=== PATIENT | female | born 1935 | race Caucasian/White ===

== ENCOUNTER 2020-07-20 04:17 | Emergency (ER) | payer MEDICARE, OTHER ==
[2020-07-20 04:28] VITALS: BP 206/91; PULSE 62
--- NOTE | 2020-07-20 05:05 | EDM.PDOC ---
<DutchLuis ragsdale Barbra - Last Filed: 07/20/20 06:59> ED HPI GENERAL MEDICAL PROBLEM - General Chief Complaint: Neurological Problem Stated Complaint: dizzy,throwing up and headache Time Seen by Provider: 07/20/20 04:39 Source of Information: Reports: Patient History Limitations: Reports: No Limitations - History of Present Illness INITIAL COMMENTS - FREE TEXT/NARRATIVE: Mrs. High is a very pleasant 84-year-old woman who now presents to the ED with a complaint of dizziness. She states that she got up around 01:00 morning to use the restroom, and shortly afterward developed a sense of disequilibrium, goofiness, and unsteadiness on her feet. She specifically denies feeling lightheaded or vertiginous, although she did also develop nausea without emesis around that time. No associated headache, although she states that she has had sinus pressure for the past 2 to 3 months. No tinnitus, ear pain, or decreased hearing. No dysuria, although she states that she has had to get up to use the restroom in the middle of the night with increasing frequency over the past few months. Patient states that she had similar symptoms once, about 30 years ago. She states that she was seen in an ED, but she does not recall what her diagnosis was. The patient states that she sleeps on her right side, following bilateral hip replacement surgery, and that if she lies on her back, it will induce these sorts of symptoms. She states that earlier tonight she briefly laid on her back in order to stretch her legs, and she believes that that is the cause of her current symptoms. Here in the ED, the patient's initial BP was found to be elevated at 206/91, although a subsequent BP a short while later was down to 199/91, without t reatment. She is otherwise hemodynamically stable, afebrile, saturating 96% on room air. Other than 2 to 3 months of sinus pressure and the increased need to urinate at night, the patient denies having a recent fever, chills, sore throat, ear pain, nasal or sinus congestion, cough, dyspnea, chest pain, palpitations, nausea, vomiting, constipation, diarrhea, abdominal pain, urinary symptoms, recent weight gain or weight loss, recent bloody bowel movements or black bowel movements, recent joint aches, headaches, or rashes. The patient's PCP is Dr. Chet Grissom. She already received an influenza vaccine this season. - Related Data Allergies Allergy/AdvReac Type Severity Reaction Status Date / Time No Known Allergies Allergy Verified 07/20/20 04:27 Home Meds: Home Meds Aspirin [Ecotrin] 81 mg PO BEDTIME 01/03/16 [History] Calcium Carbonate/Vitamin D3 [Calcium 1,000 + D3 Caplet] 1 each PO BID 01/03/16 [History] Cholecalciferol (Vitamin D3) [Vitamin D3] 2,000 unit PO DAILY 01/03/16 [History] Fish Oil/Latimer-3 Fatty Acids [Fish Oil] 1 each PO DAILY 01/03/16 [History] Levothyroxine [Synthroid] 88 mcg PO ACBREAKFAST 01/03/16 [History] Multivitamin [Multivitamins] 1 each PO 1200 01/03/16 [History] Ubidecarenone [Coq-10] 100 mg PO DAILY 01/03/16 [History] amLODIPine [Norvasc] 2.5 mg PO DAILY 01/03/16 [History] Losartan/Hydrochlorothiazide [Losartan-HCTZ 100-25 MG] 1 each PO DAILY 07/20/20 [History] Nitrofurantoin Monohyd/M-Cryst [Macrobid 100 mg Capsule] 100 mg PO BID #10 capsule 07/20/20 [Rx] atorvaSTATin [Lipitor] 20 mg PO BEDTIME 07/20/20 [History] Past Medical History Cardiovascular History: Reports: High Cholesterol, Hypertension Musculoskeletal History: Reports: Osteoarthritis (lower spine) Endocrine/Metabolic History: Reports: Hypothyroidism - Past Surgical History HEENT Surgical History: Reports: Cataract Surgery (bilateral), Oral Surgery (dental extractions) Musculoskeletal Surgical History: Reports: Hip Replacement (bilateral) Social & Family History - Tobacco Use Tobacco Use Status *Q: Former Tobacco User Years of Tobacco use: 36 Packs/Tins Daily: 0.5 Month/Year Tobacco Last Used: Quit 1989 - Alcohol Use Alcohol Use History: Yes Alcohol Use Frequency: Socially - Recreational Drug Use Recreational Drug Use: No - Living Situation & Occupation Living situation: Reports: , with Family (Son) Occupation: Retired ED ROS GENERAL - Review of Systems Review Of Systems: Comprehensive ROS is negative, except as noted in HPI. ED EXAM, GENERAL - Physical Exam Exam: See Below Exam Limited By: No Limitations General Appearance: Alert, WD/WN, No Apparent Distress Eye Exam: Bilateral Eye: EOMI, Normal Inspection (s/p cataract surgery) Ears: Normal External Exam, Normal Canal, Hearing Grossly Normal, Normal TMs Nose: Normal Inspection, Normal Mucosa, No Blood Throat/Mouth: Normal Inspection, Normal Lips, Normal Teeth, Normal Gums, Normal Oropharynx, Normal Voice, No Airway Compromise Head: Atraumatic, Normocephalic Neck: Normal Inspection, Supple, Non-Tender, Full Range of Motion. No: Carotid Bruit, Lymphadenopathy (L), Lymphadenopathy (R) Respiratory/Chest: No Respiratory Distress, Lungs Clear, Normal Breath Sounds, No Accessory Muscle Use Cardiovascular: Normal Peripheral Pulses, Regular Rate, Rhythm, No Edema, No Gallop, No JVD, No Murmur, No Rub Peripheral Pulses: 3+: Radial (L), Radial (R) GI/Abdominal: Normal Bowel Sounds, Soft, Non-Tender, No Organomegaly, No Dis tention, No Abnormal Bruit, No Mass Back Exam: Normal Inspection, Full Range of Motion, NT Extremities: Normal Inspection, Normal Range of Motion, No Pedal Edema, Normal Capillary Refill Neurological: Alert, Oriented, Normal Cognition, No Motor/Sensory Deficits Psychiatric: Normal Affect Skin Exam: Warm, Dry, Intact, Normal Color, No Rash #1 Interpretation EKG Date: 07/20/20 Time: 04:31 Rhythm: NSR Rate (Beats/Min): 60 [place]: Normal P-Wave: Present QRS: LBBB QT: Normal Comparison: NA - No Prior EKG Course - Re-Assessments/Exams Free Text/Narrative Re-Assessment/Exam: 07/20/20 05:00 As above, the patient developed a sense of disequilibrium after getting up to use the restroom this morning. While she calls her symptoms "dizzy" she denies feeling lightheaded or vertiginous. She did, however, have some associated nausea, although she denies having associated headache. Her initial BP is found to be elevated. An ECG obtained at triage demonstrates a normal sinus rhythm with left bundle branch block and 1 PVC. Her physical exam, including a thorough neurologic examination, is normal. I have ordered a work-up that includes orthostatics, several blood tests, a urinalysis, and a CT of her head and sinuses, since she complains of about 2 to 3 months of sinus pressure. 07/20/20 06:14 CT of the head without contrast is read by [facility] as: 1. No evidence of acute intracranial abnormality. No evidence of acute infarction, hemorrhage, or mass. 2. Atrophy and microvascular disease. CT maxillofacial without contrast is read by [facility] as: 1. Sinusitis as described. 2. Clear mastoid and middle ear cavities. 07/20/20 06:30 The patient is orthostatic. Her CBC is unremarkable. Her CMP is remarkable for a BUN slightly elevated 27, with a Cr within normal limits at 1.0. She has mild hyperglycemia of 129, with the remainder of her CMP being unremarkable. She has hypomagnesemia of 1.5. Her troponin is undetectably low. Her D-dimer is elevated at 1.30. Her urinalysis is remarkable for 2+ occult blood with 30-40 RBCs, leukocyte esterase negative with 0-5 WBCs, nitrate negative with moderate bacteria, and no squamous epithelial cells seen. Based on the above, I have ordered a CT angiogram of the chest to evaluate for PE, and although she is orthostatic, I have ordered judicious IV fluid, due to her elevated BP. She will also be given a 4 g Mg-rider. I have ordered a urine culture, and will start her on oral nitrofurantoin. 07/20/20 06:[address] Maria, and care of the patient turned over to him at this time, for change of shift. Departure - Departure Disposition: Home, Self-Care 01 Clinical Impression: Dizziness UTI (urinary tract infection) Qualifiers: Urinary tract infection type: site unspecified Hematuria presence: without hematuria Qualified Code(s): N39.0 - Urinary tract infection, site not specified - Discharge Information Prescriptions: Nitrofurantoin Monohyd/M-Cryst [Macrobid 100 mg Capsule] 100 mg PO BID #10 capsule Referrals: Chet Mcwilliams MD [Primary Care Provider] - 1 Week Forms: ED Department Discharge Additional Instructions: Take the macrobid 2 times per day for 5 days. Take the antivert every 6 hours as needed for dizziness. Take your other medications as prescribed. Follow up with your doctor within a week. Please return if you are worse. Sepsis Event Note (ED) - Evaluation Sepsis Screening Result: No Definite Risk <Rudolph Maria - Last Filed: 07/20/20 08:25> Course - Vital Signs Last Recorded V/S: Last Vital Signs Temp 98.7 F 07/20/20 04:24 Pulse 62 07/20/20 04:24 Resp 16 07/20/20 04:24 BP 206/91 H 07/20/20 04:24 Pulse Ox 96 07/20/20 04:24 Orthostatic Blood Pressure [ 172/97 Standing] Orthostatic Blood Pressure [ 192/73 Sitting] Orthostatic Blood Pressure [ 192/77 Supine] - Orders/Labs/Meds Orders: Active Orders 24 hr Category Date Time Status EKG Documentation Completion [RC] STAT Care 07/20/20 04:41 Active Orthostatic Vital Signs [RC] STAT Care 07/20/20 04:59 Active Ang Chest [CT] Stat Exams 07/20/20 06:27 Taken Head wo Cont [CT] Stat Exams 07/20/20 04:58 Taken Max Facial Sinus wo Cont [CT] Stat Exams 07/20/20 04:59 Taken CULTURE URINE [RM] Stat Lab 07/20/20 05:30 Received Magnesium Sulfate/Water [Magnesium Sulfate in Water Med 07/20/20 06:30 Active Premix] 4 gm Premix Bag 1 bag IV ONETIME Sodium Chloride 0.9% [Normal Saline] 1,000 ml Med 07/20/20 06:30 Active IV ASDIRECTED Sodium Chloride 0.9% [Normal Saline] 100 ml Med 07/20/20 07:30 Active IV ASDIRECTED Medication Orders Sodium Chloride (Normal Saline) 1,000 mls @ 100 mls/hr IV ASDIRECTED [facility] Last Admin: 07/20/20 06:31 Dose: 100 mls/hr Documented by: STEVO Magnesium Sulfate 4 gm/ Premix 50 mls @ 12.5 mls/hr IV ONETIME ONE Stop: 07/20/20 10:29 Last Admin: 07/20/20 06:33 Dose: 12.5 mls/hr Documented by: STEVO Sodium Chloride (Normal Saline) 100 mls @ 60 mls/hr IV ASDIRECTED YRIS Last Admin: 07/20/20 07:31 Dose: 60 mls/hr Documented by: VAL Labs: Laboratory Tests 07/20/20 07/20/20 07/20/20 Range/Units 05:30 05:40 05:40 WBC 10.03 (3.98-10.04) K/mm3 RBC 3.85 L (3.98-5.22) M/mm3 Hgb 12.4 (11.2-15.7) gm/dl Hct 35.9 (34.1-44.9) % MCV 93.2 (79.4-94.8) fl MCH 32.2 (25.6-32.2) pg MCHC 34.5 (32.2-35.5) g/dl RDW Std Deviation 42.0 (36.4-46.3) fL Plt Count 142 L (182-369) K/mm3 MPV 10.1 (9.4-12.3) fl Neutrophils % (Manual) 63 H (40-60) % Band Neutrophils % 6 (0-10) % Lymphocytes % (Manual) 23 (20-40) % Atypical Lymphs % 5 % Monocytes % (Manual) 3 (2-10) % Eosinophils % (Manual) 0 L (0.7-5.8) % Basophils % (Manual) 0 L (0.1-1.2) Platelet Estimate Decreased Plt Morphology Comment Normal RBC Morph Comment Normal D-Dimer, Quantitative (0.19-0.50) mg/L Sodium 139 (136-145) mEq/L Potassium 3.5 (3.5-5.1) mEq/L Chloride 102 (98-107) mEq/L Carbon Dioxide 28 (21-32) mEq/L Anion Gap 12.5 (5-15) BUN 27 H (7-18) mg/dL Creatinine 1.0 (0.55-1.02) mg/dL Est Cr Clr Drug Dosing 39.04 mL/min Estimated GFR (MDRD) 53 (>60) mL/min BUN/Creatinine Ratio 27.0 H (14-18) Glucose 129 H (83-115) mg/dL Calcium 9.5 (8.5-10.1) mg/dL Magnesium 1.5 L (1.8-2.4) mg/dl Total Bilirubin 0.6 (0.2-1.0) mg/dL AST 26 (15-37) U/L ALT 26 (14-59) U/L Alkaline Phosphatase 63 (46-116) U/L Troponin I < 0.017 (0.00-0.056) ng/mL Total Protein 6.3 L (6.4-8.2) g/dl Albumin 3.4 (3.4-5.0) g/dl Globulin 2.9 gm/dL Albumin/Globulin Ratio 1.2 (1-2) Urine Color Yellow (Yellow) Urine Appearance Clear (Clear) Urine pH 7.5 (5.0-8.0) Ur Specific [place] 1.025 (1.005-1.030) Urine Protein 3+ H (Negative) Urine Glucose (UA) Negative (Negative) Urine Ketones Negative (Negative) Urine Occult Blood 2+ H (Negative) Urine Nitrite Negative (Negative) Urine Bilirubin Negative (Negative) Urine Urobilinogen 0.2 (0.2-1.0) Ur Leukocyte Esterase Negative (Negative) U Hyaline Cast (Auto) 0-5 (0-5) /lpf Urine RBC 30-40 H (0-5) /hpf Urine WBC 0-5 (0-5) /hpf Ur Epithelial Cells Not seen (0-5) /hpf Urine Bacteria Moderate H (FEW) /hpf Urine Mucus Moderate H (FEW) /hpf 12/13/20 Range/Units 05:40 WBC (3.98-10.04) K/mm3 RBC (3.98-5.22) M/mm3 Hgb (11.2-15.7) gm/dl Hct (34.1-44.9) % MCV (79.4-94.8) fl MCH (25.6-32.2) pg MCHC (32.2-35.5) g/dl RDW Std Deviation (36.4-46.3) fL Plt Count (182-369) K/mm3 MPV (9.4-12.3) fl Neutrophils % (Manual) (40-60) % Band Neutrophils % (0-10) % Lymphocytes % (Manual) (20-40) % Atypical Lymphs % % Monocytes % (Manual) (2-10) % Eosinophils % (Manual) (0.7-5.8) % Basophils % (Manual) (0.1-1.2) Platelet Estimate Plt Morphology Comment RBC Morph Comment D-Dimer, Quantitative 1.30 H (0.19-0.50) mg/L Sodium (136-145) mEq/L Potassium (3.5-5.1) mEq/L Chloride (98-107) mEq/L Carbon Dioxide (21-32) mEq/L Anion Gap (5-15) BUN (7-18) mg/dL Creatinine (0.55-1.02) mg/dL Est Cr Clr Drug Dosing mL/min Estimated GFR (MDRD) (>60) mL/min BUN/Creatinine Ratio (14-18) Glucose (83-115) mg/dL Calcium (8.5-10.1) mg/dL Magnesium (1.8-2.4) mg/dl Total Bilirubin (0.2-1.0) mg/dL AST (15-37) U/L ALT (14-59) U/L Alkaline Phosphatase (46-116) U/L Troponin I (0.00-0.056) ng/mL Total Protein (6.4-8.2) g/dl Albumin (3.4-5.0) g/dl Globulin gm/dL Albumin/Globulin Ratio (1-2) Urine Color (Yellow) Urine Appearance (Clear) Urine pH (5.0-8.0) Ur Specific [place] (1.005-1.030) Urine Protein (Negative) Urine Glucose (UA) (Negative) Urine Ketones (Negative) Urine Occult Blood (Negative) Urine Nitrite (Negative) Urine Bilirubin (Negative) Urine Urobilinogen (0.2-1.0) Ur Leukocyte Esterase (Negative) U Hyaline Cast (Auto) (0-5) /lpf Urine RBC (0-5) /hpf Urine WBC (0-5) /hpf Ur Epithelial Cells (0-5) /hpf Urine Bacteria (FEW) /hpf Urine Mucus (FEW) /hpf Meds: Medications Generic Name Dose Route Start Last Admin Trade Name Freq PRN Reason Stop Dose Admin Sodium Chloride 1,000 mls @ 100 mls/hr 07/20/20 06:30 07/20/20 06:31 Normal Saline IV 100 mls/hr ASDIRECTED YRIS Administration Magnesium Sulfate 4 gm/ Premix 50 mls @ 12.5 mls/hr 07/20/20 06:30 07/20/20 06:33 IV 07/20/20 10:29 12.5 mls/hr ONETIME ONE Administration Sodium Chloride 100 mls @ 60 mls/hr 07/20/20 07:30 07/20/20 07:31 Normal Saline IV 60 mls/hr ASDIRECTED YRIS Administration Discontinued Medications Generic Name Dose Route Start Last Admin Trade Name Randee PRN Reason Stop Dose Admin Iopamidol 100 ml 07/20/20 07:28 07/20/20 07:31 Isovue-370 (76%) IVPUSH 07/20/20 07:29 100 ml ONETIME ONE Administration Iopamidol 100 ml 07/20/20 07:30 Isovue-370 (76%) IVPUSH 07/20/20 07:31 ONETIME ONE Nitrofurantoin Macrocrystals 100 mg 07/20/20 06:32 07/20/20 06:37 Macrobid PO 07/20/20 06:33 100 mg ONETIME STA Administration Ondansetron HCl 4 mg 07/20/20 06:30 07/20/20 06:34 Zofran IVPUSH 07/20/20 06:31 4 mg ONETIME ONE Administration - Re-Assessments/Exams Free Text/Narrative Re-Assessment/Exam: 07/20/20 08:[address] Judd. The CT angio of her chest shows no evidence of pulmonary embolus. She is doing better. I will discharge her home on the macrobid. I will give her some antivert to try if she has dizziness again. 07/20/20 08:22 Departure - Departure Time of Disposition: 08:25 Condition: Good - Discharge Information *PRESCRIPTION DRUG MONITORING PROGRAM REVIEWED*: Not Applicable *COPY OF PRESCRIPTION DRUG MONITORING REPORT IN PATIENT SARABJIT: Not Applicable Sepsis Event Note (ED) - Focused Exam Vital Signs: Vital Signs Temp Pulse Resp BP Pulse Ox 07/20/20 04:24 98.7 F 62 16 206/91 H 96
[2020-07-20] MEDS ORDERED: Ondansetron 4 MG/2 ML SDV IVPUSH ONE (06:30)
[2020-07-20] MEDS ORDERED: Magnesium Sulfate/Water 4 GM in Premix Bag 1 BAG IV ONE (06:30)
[2020-07-20] MEDS ORDERED: Sodium Chloride 0.9% 1,000 ML IV SCH (06:30)
[2020-07-20] MEDS ORDERED: Nitrofurantoin Monohydrate/Macrocrystalline 100 MG Cap PO STA (06:32)
[2020-07-20] MEDS ORDERED: Iopamidol 755 Mg/ML 100 ML Bottle IVPUSH ONE ×2 (07:28→07:30)
[2020-07-20] MEDS ORDERED: Sodium Chloride 0.9% 100 ML IV SCH (07:30)
--- NOTE | 2020-07-20 08:41 | CT ---
CT chest Technique: Multiple axial sections through the chest were obtained. Intravenous contrast was utilized. Study has been performed as a pulmonary angiogram protocol. Comparison: No prior CT chest is available. Findings: Pulmonary arteries are well-opacified. No filling defects are seen to indicate pulmonary embolism. Thoracic aorta shows atherosclerotic calcification with no aneurysm. Mediastinum and hilar regions show small lymph nodes which are believed to be stable. Heart is mildly enlarged with no pericardial thickening. Cyst is noted within the right lobe of the liver measuring approximately 3.3 cm. Slight scarring or atelectasis is seen within the right middle lobe and right lower lobe. No acute pulmonary change is appreciated. No pleural effusions are seen. Osseous windows were obtained. Minimal disc space narrowing and endplate osteophytes are seen within the spine. No acute osseous finding is appreciated. Impression: 1. No findings of pulmonary embolism. 2. Other findings believed to be nonacute as described above. Diagnostic code #2 I agree with preliminary report from [facility], finalized on 07/20/20, 8:35 AM DRIFTMAN
--- NOTE | 2020-07-20 09:29 | CT ---
CT paranasal sinuses Technique: Multiple axial sections through the paranasal sinuses were obtained. Intravenous contrast was not utilized. Reconstructed coronal and sagittal images were obtained. Findings: Slight mucosal thickening is seen within both maxillary sinuses. Minimal air-fluid level is seen within the left maxillary sinuses. Paranasal sinuses otherwise show nothing acute. Visualized mastoid sinuses show nothing acute. Minimal nasal septal deviation is seen. Slight degenerative change is noted within the temporomandibular joints. No acute osseous finding is appreciated. Impression: 1. Mild findings within the maxillary sinuses suggestive of possible sinusitis. 2. No additional acute finding is seen. Diagnostic code #3 I agree with preliminary report from [facility], finalized on 07/20/20, 7:00 AM CORRUGATOR
--- NOTE | 2020-07-20 10:14 | CT ---
Head CT Technique: Multiple axial sections through the brain were obtained. Intravenous contrast was not utilized. Comparison: No prior intracranial imaging is available. Findings: Ventricles along with basal cisterns and sulci over the convexities are mildly prominent. 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 Diminished density is noted within the periventricular and subcortical white matter which is compatible with small vessel ischemic demyelination change. No other abnormal parenchymal densities are seen. No evidence of intracranial hemorrhage. No midline shift or mass-effect is seen. Bone window settings were reviewed. No acute calvarial finding is seen. Visualized mastoid sinuses are clear. Small air-fluid level is noted within the left maxillary sinus. Impression: 1. Air-fluid level within the left maxillary sinus possibly due to retained secretions, please exclude any symptoms of acute sinusitis. 2. Senescent change as noted above. 3. No acute intracranial abnormality is seen. Diagnostic code #3 I agree with preliminary report from [facility], finalized on 07/20/20, 7:09 AM FELT CARBONIZER
== END 2020-07-20 08:36 | disposition home or self-care (01) ==
LOC: JD.ED 04:17
DX: N39.0 Urinary tract infection, site not specified (principal); R42 Dizziness and giddiness; E83.42 Hypomagnesemia; R79.1 Abnormal coagulation profile; E78.00 Pure hypercholesterolemia, unspecified; I10 Essential (primary) hypertension; M19.90 Unspecified osteoarthritis, unspecified site; E03.9 Hypothyroidism, unspecified; I44.7 Left bundle-branch block, unspecified; Z87.891 Personal history of nicotine dependence; Z98.49 Cataract extraction status, unspecified eye; Z79.82 Long term (current) use of aspirin; Z79.899 Other long term (current) drug therapy
CPT/HCPCS: 36415; 70450; 70486; 71275; 80053; 81001; 83735; 84484; 85007; 85027; 85379; 87086; 93005; 96365; 96366; 96375; 99284; A9270; J2405; J3475; J7030; Q9967; 93010

== ENCOUNTER 2020-12-14 05:50 | Emergency (ER) | payer MEDICARE, OTHER ==
[2020-12-14 06:10] VITALS: BP 170/85; PULSE 67
[2020-12-14] MEDS ORDERED: LORazepam 2 MG/ML SDV IV ONE (06:22)
[2020-12-14] MEDS ORDERED: Metoclopramide 10 MG/2 ML SDV IVPUSH ONE (06:22)
--- NOTE | 2020-12-14 06:28 | EDM.PDOC ---
<Fortino Salvador - Last Filed: 12/14/20 14:43> ED HPI GENERAL MEDICAL PROBLEM - General Chief Complaint: Neurological Problem Stated Complaint: extremley dizzy Time Seen by Provider: 12/14/20 06:22 - Related Data Allergies Allergy/AdvReac Type Severity Reaction Status Date / Time No Known Allergies Allergy Verified 12/15/20 09:01 Home Meds: Home Meds Aspirin [Ecotrin] 81 mg PO BEDTIME 01/03/16 [History] Calcium Carbonate/Vitamin D3 [Calcium 1,000 + D3 Caplet] 1 each PO BID 01/03/16 [History] Cholecalciferol (Vitamin D3) [Vitamin D3] 2,000 unit PO DAILY 01/03/16 [History] Fish Oil/[place]-3 Fatty Acids [Fish Oil] 1 each PO DAILY 01/03/16 [History] Levothyroxine [Synthroid] 88 mcg PO ACBREAKFAST 01/03/16 [History] Multivitamin [Multivitamins] 1 each PO 1200 01/03/16 [History] Ubidecarenone [Coq-10] 100 mg PO DAILY 01/03/16 [History] atorvaSTATin [Lipitor] 20 mg PO BEDTIME 07/20/20 [History] Meclizine [Antivert] 12.5 mg PO BID #20 tab 12/14/20 [Rx] Betahistine HCl 8 mg PO Q8H 12/15/20 [History] Irbesartan/Hydrochlorothiazide [Irbesartan-Hctz 300-12.5 mg Tb] 1 each PO DAILY 12/15/20 [History] Meloxicam [Mobic] 15 mg PO DAILY PRN 12/15/20 [History] amLODIPine Besylate [Amlodipine Besylate] 10 mg PO DAILY 12/15/20 [History] Course - Re-Assessments/Exams Free Text/Narrative Re-Assessment/Exam: 12/14/20 07:37. Have assumed care from Dr Aranda after change of shift. I agree with his hx and exam as documented. Head Ct looks good. awaiting Radiologist report. She was doing OK but now much more nauseated again. Will give further meds. Will need to give her more time to try get this settled down. Have ordered zofran 4 mg IV, solumedrol 62.5 mg IV, ativan 0..25 mg IV. She pre viously been given ativan 0.25 mg IV, ativan 12.5 mg PO. 12/14/20 09:11. Sleeping. Hopefully that will help this settle down for her. 12/14/20 12:00. Still sleeping. 12/14/20 13:30. Awake, feeling much better, vertigo gone for now. Discharge instr. as documented. Departure - Departure Time of Disposition: 13:30 Disposition: Home, Self-Care 01 Condition: Fair Clinical Impression: Vertigo - Discharge Information Prescriptions: Meclizine [Antivert] 12.5 mg PO BID #20 tab Referrals: Chet Mcwilliams MD [Primary Care Provider] - Forms: ED Department Discharge Additional Instructions: Rest. Continue to move slowly and carefully. Anitver 12.5 mg twice daily for 5 days. Prescription has been sent to [facility]. They are open until [address] Aranda has written a prescription for Betahistine. Fill that tomorrow. [facility] is going to be the most likely Pharmacy to be able fill that. Start that tomorrow 2 to 3 times daily as needed for severe vertigo. See Dr Grissom in about 8 to 10 days for recheck. Call for appt. Return to ED as needed. <Hasmukh Aranda - Last Filed: 12/16/20 07:09> ED HPI GENERAL MEDICAL PROBLEM - General Source of Information: Reports: Patient History Limitations: Reports: No Limitations - History of Present Illness INITIAL COMMENTS - FREE TEXT/NARRATIVE: 85-year-old female who looks younger than her stated age presents to the ED due to severe vertigo symptoms especially noted if she tries to lie down flat in her bed. It also worsens when she gets up from the lying down position to the seated position. Patient has been struggling with vertigo symptoms off and on since 2019: She denies any recent closed head injuries. She denies any drainage from either ear. No obvious sinus congestion although she has to blow her nose every morning. She has not appreciated a loss of hearing in either ear and no increased humming buzzing or ringing in either ear. She does not use aspirin. She does use meloxicam daily for arthritic pain. All NSAIDs can persist potentially cause vertigo symptoms. This morning the vertigo was particularly severe when she had to get up to void about 3:45 this morning. She had to sit on the edge of the bed for a lengthy period of time and then walk along holding onto her dresser and then the castellon to get to the bathroom. Si milarly she had to do this on the way back to bed. She is fearful of lying down to make the vertigo worse. She therefore sat in a chair at her bedside until suitable hour to call her son to help bring her to the hospital. She appreciates nausea with the vertigo symptoms but she has never vomited. She has never used meclizine. She denies fever or chills. She not aware of her heart beating irregularly or skipping beats. She definitely gives a strong history of vertigo with the room spinning around her. She believes it is worse when she looks to her right side. She has to hold onto her head and go down very slowly to lie down in preparation for sleep. Onset: Other (Symptoms have been present since at least 2019. Much worse today.) Duration: Chronic, Getting Worse (Worse vertigo symptoms this morning.) Location: Reports: Generalized (Severe vertigo symptoms with lying down and sitting up in bed.) Quality: Reports: Other Severity: Severe (Severe vertigo) Improves with: Reports: Rest (And holding still.) Worsens with: Reports: Movement (She appreciates its if she looks to the right side. She is worse with when she tries to lie down in bed or sit up from bed.) Context: Reports: Other (Spontaneous occurrence but Calvin of last year and it has not ever gone away. Some days are worse than others.). Denies: Activity, Exercise, Lifting, Sick Contact, Trauma Associated Symptoms: Reports: Loss of Appetite, Nausea/Vomiting. Denies: Confusion, Chest Pain, Cough, cough w sputum, Diaphoresis, Fever/Chills, Headaches (Some days.), Malaise, Rash, Seizure, Shortness of Breath (Nausea associate with the vertigo symptoms but never any vomiting.), Syncope, Weakness Treatments PAYMENT REP: Reports: Other (see below) (None.) Past Medical History Cardiovascular History: Reports: High Cholesterol, Hypertension Musculoskeletal History: Reports: Osteoarthritis Endocrine/Metabolic History: Reports: Hypothyroidism - Past Surgical History HEENT Surgical History: Reports: Cataract Surgery, Oral Surgery Musculoskeletal Surgical History: Reports: Hip Replacement Social & Family History - Living Situation & Occupation Living situation: Reports: , with Family (Son) Occupation: Retired ED ROS GENERAL - Review of Systems Review Of Systems: See Below Constitutional: Reports: Fatigue, Decreased Appetite. Denies: Fever, Chills, Weight Loss HEENT: Reports: Glasses, Rhinitis (She is a bit of clogged up nose first thing in the morning and has to blow her nose.), Other (Has ectropion's of both lower eyelids and her eyes are quite dry because of this.) Respiratory: Reports: Cough. Denies: Shortness of Breath, Wheezing, Pleuritic Chest Pain, Sputum, Hemoptysis (Occasional nonproductive cough.) Cardiovascular: Reports: Blood Pressure Problem, Dyspnea on Exertion, Edema (Chronic dependent edema primarily around the feet and ankles. She has been wearing compression stockings daily.). Denies: Chest Pain, Claudication (Systolic hypertension primarily. Recent adjustment to her medications over the last 2 months.), Lightheadedness, Orthopnea, Palpitations (On occasion.) Endocrine: Reports: Fatigue GI/Abdominal: Reports: Abdominal Pain (Feels abdominally bloated most of the time.), Flatus, Nausea ( States her bowels are working fine.). Denies: Stool Incontinence, Vomiting, Other : Reports: Frequency, Incontinence (Rare urge incontinence.), Urgency Musculoskeletal: Reports: Back Pain, Joint Pain (Both hips for which she has been going to physical therapy for. History suggest low-grade sciatica affecting the right lower extremity. She has bilateral total hip replacements) Skin: Reports: Bruising (Bruises fairly easily.) Neurological: Reports: Dizziness (Vertigo.), Difficulty Walking, Weakness, Gait Disturbance (Due to vertigo at times.). Denies: Confusion, Headache, Numbness, Pre-Existing Deficit, Syncope, Tingling, Tremors, Trouble Speaking (Due to the vertigo at times.), Change in Speech Psychiatric: Reports: No Symptoms Hematologic/Lymphatic: Reports: No Symptoms Immunologic: Reports: No Symptoms ED EXAM, DIZZINESS - Physical Exam Exam: See Below Exam Limited By: No Limitations General Appearance: Alert, WD/WN, No Apparent Distress, Other (Temperature is 35.9 degrees. Heart rate 67 and sinus respiratory 16 BP elevated at 170/85. Pulse ox 97% on room air. BP subsequently came down to 164/77.) Eye Exam: Bilateral Eye: Normal Inspection (Mild erythema of the blepharal margins. No scleral icterus.), Nystagmus (None.), PERRL (I could not elicit any nystagmus on lateral gaze.), Other (Bilateral ectropion lower eyelids. She has chronic dry eyes.) Ears: Normal External Exam, Normal TMs, Other (Small amount of crumbly cerumen in both ear canals but nothing against her eardrums.) Throat/Mouth: Normal Inspection, Normal Lips, Normal Oropharynx, Other Head Exam: Atraumatic, Normocephalic Vertigo: worsens with head to R, reproducible, reversible, short duration Neck: Normal Inspection, Limited Range of Motion, Tender Lateral. No: Supple, Carotid Bruit (Mild tenderness bilateral cervical spine due to osteoarthritic change), Lymphadenopathy (L), Lymphadenopathy (R) Respiratory/Chest: No Respiratory Distress, Lungs Clear, No Accessory Muscle Use, Decreased Breath Sounds. No: Rales (Breath sounds are diminished to the lower 20% lung zhou bilaterally.), Rhonchi, Wheezing Cardiovascular: Normal Peripheral Pulses, Regular Rate, Rhythm, No Gallop, No JVD, No Murmur. No: No Edema GI/Abdominal: Normal Bowel Sounds, Soft, Non-Tender, No Organomegaly, No Abnormal Bruit, No Mass, Distended (Mildly distended slight tympany to percussion in the epigastrium, with combined with mild aerophagia.) Neurological: Alert, Normal Mood/Affect, Normal Dorsiflexion, CN II-XII Intact, Normal Plantar Flexion, Normal Gait, Normal Reflexes, No Motor/Sensory Deficits, Oriented x 3, Other (Normal rapid alternating movements. Normal [id number] evaluation.) Extremities: Normal Inspection, Non-Tender, Pedal Edema (2+ pitting edema up to just above her ankles bilaterally.), Limited Range of Motion (Very limited range of motion of both hips with pain on internal and external rotation. Pain on the right side in the distribution of tensor fascia landon.) Psychiatric: Normal Affect, Normal Mood Skin Exam: Warm, Dry, Intact, Normal Color, No Rash #1 Interpretation EKG Date: 12/14/20 Time: 06:26 Rhythm: NSR Rate (Beats/Min): 60 [place]: LAD-Left [place] Deviation (-38 degrees) P-Wave: Enlarged (Considered by atrial hypertrophy) QRS: LBBB (Decreased voltage limb leads.) ST-T: Other (Repolarization abnormality V6 T wave inversion aVL again nonspecific) QT: Prolonged (Moderately prolonged) EKG Interpretation Comments: Abnormal ECG Course - Vital Signs Last Recorded V/S: Last Vital Signs Temp 35.9 C L 12/14/20 06:07 Pulse 67 12/14/20 06:07 Resp 16 12/14/20 06:07 BP 170/85 H 12/14/20 06:07 Pulse Ox 97 12/14/20 06:07 - Orders/Labs/Meds Labs: Laboratory Tests 12/14/20 12/14/20 12/14/20 Range/Units 06:40 06:40 06:40 WBC 10.99 H (3.98-10.04) K/mm3 RBC 3.76 L (3.98-5.22) M/mm3 Hgb 11.7 (11.2-15.7) gm/dl Hct 34.6 (34.1-44.9) % MCV 92.0 (79.4-94.8) fl MCH 31.1 (25.6-32.2) pg MCHC 33.8 (32.2-35.5) g/dl RDW Std Deviation 44.6 (36.4-46.3) fL Plt Count 153 L (182-369) K/mm3 MPV 9.1 L (9.4-12.3) fl Neut % (Auto) 53.0 (34.0-71.1) % Lymph % (Auto) 43.3 (19.3-51.7) % [place] % (Auto) 2.7 L (4.7-12.5) % Eos % (Auto) 0.7 (0.7-5.8) Baso % (Auto) 0.2 (0.1-1.2) % Neut # (Auto) 5.82 (1.56-6.13) K/mm3 Lymph # (Auto) 4.76 H (1.18-3.74) K/mm3 [place] # (Auto) 0.30 (0.24-0.36) K/mm3 Eos # (Auto) 0.08 (0.04-0.36) K/mm3 Baso # (Auto) 0.02 (0.01-0.08) K/mm3 Manual Slide Review Normal smear ESR 20 (0-20) mm/hr Sodium 143 (136-145) mEq/L Potassium 3.4 L (3.5-5.1) mEq/L Chloride 105 (98-107) mEq/L Carbon Dioxide 28 (21-32) mEq/L Anion Gap 13.4 (5-15) BUN 25 H (7-18) mg/dL Creatinine 0.9 (0.55-1.02) mg/dL Est Cr Clr Drug Dosing 42.57 mL/min Estimated GFR (MDRD) 59 (>60) mL/min BUN/Creatinine Ratio 27.8 H (14-18) Glucose 112 (83-115) mg/dL Calcium 9.0 (8.5-10.1) mg/dL Magnesium 1.6 L (1.8-2.4) mg/dl Total Bilirubin 0.5 (0.2-1.0) mg/dL AST 26 (15-37) U/L ALT 27 (14-59) U/L Alkaline Phosphatase 84 (46-116) U/L C-Reactive Protein <0.2 (<1.0) mg/dL NT-Pro-B Natriuret Pep (0-450) pg/mL Total Protein 6.1 L (6.4-8.2) g/dl Albumin 3.1 L (3.4-5.0) g/dl Globulin 3.0 gm/dL Albumin/Globulin Ratio 1.0 (1-2) 12/14/20 Range/Units 06:40 WBC (3.98-10.04) K/mm3 RBC (3.98-5.22) M/mm3 Hgb (11.2-15.7) gm/dl Hct (34.1-44.9) % MCV (79.4-94.8) fl MCH (25.6-32.2) pg MCHC (32.2-35.5) g/dl RDW Std Deviation (36.4-46.3) fL Plt Count (182-369) K/mm3 MPV (9.4-12.3) fl Neut % (Auto) (34.0-71.1) % Lymph % (Auto) (19.3-51.7) % [place] % (Auto) (4.7-12.5) % Eos % (Auto) (0.7-5.8) Baso % (Auto) (0.1-1.2) % Neut # (Auto) (1.56-6.13) K/mm3 Lymph # (Auto) (1.18-3.74) K/mm3 [place] # (Auto) (0.24-0.36) K/mm3 Eos # (Auto) (0.04-0.36) K/mm3 Baso # (Auto) (0.01-0.08) K/mm3 Manual Slide Review ESR (0-20) mm/hr Sodium (136-145) mEq/L Potassium (3.5-5.1) mEq/L Chloride (98-107) mEq/L Carbon Dioxide (21-32) mEq/L Anion Gap (5-15) BUN (7-18) mg/dL Creatinine (0.55-1.02) mg/dL Est Cr Clr Drug Dosing mL/min Estimated GFR (MDRD) (>60) mL/min BUN/Creatinine Ratio (14-18) Glucose (83-115) mg/dL Calcium (8.5-10.1) mg/dL Magnesium (1.8-2.4) mg/dl Total Bilirubin (0.2-1.0) mg/dL AST (15-37) U/L ALT (14-59) U/L Alkaline Phosphatase (46-116) U/L C-Reactive Protein (<1.0) mg/dL NT-Pro-B Natriuret Pep 867 H (0-450) pg/mL Total Protein (6.4-8.2) g/dl Albumin (3.4-5.0) g/dl Globulin gm/dL Albumin/Globulin Ratio (1-2) Meds: Medications Discontinued Medications Generic Name Dose Route Start Last Admin Trade Name Freq PRN Reason Stop Dose Admin Sodium Chloride 1,000 mls @ 150 mls/hr 12/14/20 06:30 12/14/20 07:00 Normal Saline IV 150 mls/hr ASDIRECTED YRIS Administration Lorazepam 0.25 mg 12/14/20 06:22 12/14/20 07:00 Lorazepam 2 Mg/Ml Sdv IV 05/09/21 06:23 0.25 mg ONETIME ONE Administration Lorazepam 0.25 mg 12/14/20 07:59 12/14/20 08:29 Lorazepam 2 Mg/Ml Sdv IVPUSH 12/14/20 08:00 0.25 mg ONETIME ONE Administration Meclizine HCl 12.5 mg 12/14/20 07:00 12/14/20 08:16 Meclizine 12.5 Mg Tab PO 12/14/20 07:01 12.5 mg ONETIME ONE Administration Methylprednisolone Sodium Succinate 62.5 mg 12/14/20 07:58 12/14/20 08:28 Methylprednisolone Sodium Succinate 125 Mg/2 Ml Sdv IVPUSH 12/14/20 07:59 62.5 mg ONETIME ONE Administration Metoclopramide HCl 7.5 mg 12/14/20 06:22 12/14/20 07:00 Metoclopramide 10 Mg/2 Ml Sdv IVPUSH 12/14/20 06:23 7.5 mg ONETIME ONE Administration Ondansetron HCl 4 mg 12/14/20 07:58 12/14/20 08:29 Ondansetron 4 Mg/2 Ml Sdv IVPUSH 12/14/20 07:59 4 mg ONETIME ONE Administration - Radiology Interpretation Free Text/Narrative:: 85-year-old female presents to the ED with severe vertigo symptoms when achieving the lying down and sitting up position in bed since 2019. Symptoms were just much worse this morning when she had to get up abruptly to get to the bathroom. Symptoms have persisted more or less since that time with any movement of her head or neck. If she lies still the symptoms go away. Associated nausea without any vomiting. They seem to be a bit worse when looking to the right side. I could not identify any nystagmus on examination. Concern is the fact that she has had symptoms chronically for [address] of the head to be done when she can lie flat on the gurney. In the meantime I will give her Reglan 5 mg IV and Ativan 0.25 mg IV to help stabilize her balance mechanism. She will be given meclizine 12.5 mg and about a half an ho ur's time. Routine labs to be collected. Plan for CT at about 7:15 this morning once her vertigo has come under at least partial control. Sepsis Event Note (ED) - Evaluation Sepsis Screening Result: No Definite Risk
[2020-12-14] MEDS ORDERED: Sodium Chloride 0.9% 1,000 ML IV SCH (06:30)
[2020-12-14] MEDS ORDERED: Meclizine 12.5 MG Tab PO ONE (07:00)
--- NOTE | 2020-12-14 07:51 | CT ---
Head CT Technique: Multiple axial sections through the brain were obtained. Intravenous contrast was not utilized. Reconstructed coronal and sagittal images were obtained. Comparison: Prior head CT study of 07/20/20 Findings: Ventricles along with basal cisterns and sulci over the convexities are mildly prominent. Diminished density is noted within the periventricular white matter compatible with small vessel ischemic demyelination change. Several old lacunar infarcts are noted within the basal ganglia. No other abnormal parenchymal densities are seen. No evidence of intracranial hemorrhage. No midline shift or mass-effect is seen. Bone window settings were reviewed. Visualized mastoid sinuses are clear. There is mild mucosal thickening within the left maxillary sinus. Minimal mucosal thickening is noted within the right maxillary sinus. No air-fluid levels are seen within the paranasal sinuses. No acute calvarial abnormality is appreciated. Impression: 1. Sinus findings as noted above which are most likely chronic. 2. Senescent change as noted above. 3. Nothing acute is otherwise seen on noncontrast head CT study. Diagnostic code #2
[2020-12-14] MEDS ORDERED: Ondansetron 4 MG/2 ML SDV IVPUSH ONE (07:58)
[2020-12-14] MEDS ORDERED: methylPREDNISolone Sodium Succinate 125 MG/2 ML SDV IVPUSH ONE (07:58)
[2020-12-14] MEDS ORDERED: LORazepam 2 MG/ML SDV IVPUSH ONE (07:59)
== END 2020-12-14 14:20 | disposition home or self-care (01) ==
LOC: JD.ED 05:50
DX: R42 Dizziness and giddiness (principal); E78.00 Pure hypercholesterolemia, unspecified; I10 Essential (primary) hypertension; E03.9 Hypothyroidism, unspecified; Z79.82 Long term (current) use of aspirin; Z79.899 Other long term (current) drug therapy
CPT/HCPCS: 36415; 70450; 80053; 83735; 83880; 85025; 85652; 86140; 93005; 96374; 96375; 99284; A9270; J2060; J2405; J2765; J2930; J7030; 93010

== ENCOUNTER 2020-12-15 08:25 | Emergency (ER) | payer MEDICARE, OTHER ==
[2020-12-15] MEDS ORDERED: Sodium Chloride 0.9% 10 ML Syringe FLUSH PRN (09:18)
[2020-12-15] MEDS ORDERED: Sodium Chloride 0.9% 1,000 ML IV SCH (09:30)
--- NOTE | 2020-12-15 09:40 | EDM.PDOC ---
ED HPI GENERAL MEDICAL PROBLEM - General Chief Complaint: Neuro Symptoms/Deficits Stated Complaint: DIZZINESS Time Seen by Provider: 12/15/20 09:06 Source of Information: Reports: Patient History Limitations: Reports: No Limitations - History of Present Illness INITIAL COMMENTS - FREE TEXT/NARRATIVE: The patient presents with dizziness. She said this started yesterday. She was seen here in the ER. A CT was done and labs and that all looked good. She was given antivert yesterday and it helped some. She was given a prescription but she did not get it filled. She got up this morning and was still dizzy. She went to open her shades and she fell. She did not hit her head or hurt her neck. She has no injuries from the fall. She does describe the dizziness as spinning. She said it is worse when she move her head. She has no fever, chills, cough, headache, chest pain, shortness of breath, abdominal pain, nausea or vomiting. She has no numbness or weakness. This has happened before but not this bad. She had nausea yesterday. Onset: Gradual Duration: Day(s): Severity: Moderate Improves with: Reports: None Worsens with: Reports: None Associated Symptoms: Reports: No Other Symptoms - Related Data Allergies Allergy/AdvReac Type Severity Reaction Status Date / Time No Known Allergies Allergy Verified 12/15/20 09:01 Home Meds: Home Meds Aspirin [Ecotrin] 81 mg PO BEDTIME 01/03/16 [History] Calcium Carbonate/Vitamin D3 [Calcium 1,000 + D3 Caplet] 1 each PO BID 01/03/16 [History] Cholecalciferol (Vitamin D3) [Vitamin D3] 2,000 unit PO DAILY 01/03/16 [History] Fish Oil/[place]-3 Fatty Acids [Fish Oil] 1 each PO DAILY 01/03/16 [History] Levothyroxine [Synthroid] 88 mcg PO ACBREAKFAST 01/03/16 [History] Multivitamin [Multivitamins] 1 each PO 1200 01/03/16 [History] Ubidecarenone [Coq-10] 100 mg PO DAILY 01/03/16 [History] atorvaSTATin [Lipitor] 20 mg PO BEDTIME 07/20/20 [History] Meclizine [Antivert] 12.5 mg PO BID #20 tab 12/14/20 [Rx] Betahistine HCl 8 mg PO Q8H 12/15/20 [History] Irbesartan/Hydrochlorothiazide [Irbesartan-Hctz 300-12.5 mg Tb] 1 each PO DAILY 12/15/20 [History] Meloxicam [Mobic] 15 mg PO DAILY PRN 12/15/20 [History] amLODIPine Besylate [Amlodipine Besylate] 10 mg PO DAILY 12/15/20 [History] Past Medical History Cardiovascular History: Reports: High Cholesterol, Hypertension Musculoskeletal History: Reports: Osteoarthritis Endocrine/Metabolic History: Reports: Hypothyroidism - Past Surgical History HEENT Surgical History: Reports: Cataract Surgery, Oral Surgery Musculoskeletal Surgical History: Reports: Hip Replacement Social & Family History - Tobacco Use Tobacco Use Status *Q: Never Tobacco User - Recreational Drug Use Recreational Drug Use: No - Living Situation & Occupation Living situation: Reports: , with Family (Son) Occupation: Retired ED ROS GENERAL - Review of Systems Review Of Systems: See Below Constitutional: Reports: No Symptoms HEENT: Reports: No Symptoms Respiratory: Reports: No Symptoms Cardiovascular: Reports: No Symptoms Endocrine: Reports: No Symptoms GI/Abdominal: Reports: No Symptoms : Reports: No Symptoms Musculoskeletal: Reports: No Symptoms ED EXAM, NEURO - Physical Exam Exam: See Below Exam Limited By: No Limitations General Appearance: Alert, No Apparent Distress Eye Exam: Bilateral Eye: Nystagmus Ears: Normal External Exam Nose: Normal Inspection Throat/Mouth: Normal Inspection Head Exam: Atraumatic, Normocephalic Neck: Normal Inspection, Supple, Non-Tender Respiratory/Chest: No Respiratory Distress, Lungs Clear, Normal Breath Sounds Cardiovascular: Regular Rate, Rhythm, No Edema, No Murmur GI/Abdominal: Soft, Non-Tender, No Organomegaly, No Mass Neurological: Alert, No Motor/Sensory Deficits, Oriented x 3 Course - Vital Signs Last Recorded V/S: Last Vital Signs Temp 97.8 F 12/15/20 08:56 Pulse 79 12/15/20 08:56 Resp 19 12/15/20 08:56 BP 175/76 H 12/15/20 08:56 Pulse Ox 99 12/15/20 08:56 - Orders/Labs/Meds Orders: Active Orders 24 hr Category Date Time Status Peripheral IV Care [RC] . DIRECTED Care 12/15/20 09:19 Active CBC WITH AUTO DIFF [HEME] Stat Lab 12/15/20 09:30 Results COMPREHENSIVE METABOLIC PN,CMP [CHEM] Stat Lab 12/15/20 09:30 Received MAGNESIUM [CHEM] Stat Lab 12/15/20 09:30 Received Sodium Chloride 0.9% [Normal Saline] 1,000 ml Med 12/15/20 09:30 Active IV ASDIRECTED Sodium Chloride 0.9% [Saline Flush] Med 12/15/20 09:18 Active 10 ml FLUSH ASDIRECTED PRN Peripheral IV Insertion Adult [OM.PC] Stat Oth 12/15/20 09:18 Ordered Medication Orders Sodium Chloride (Normal Saline) 1,000 mls @ 125 mls/hr IV ASDIRECTED YRIS Last Admin: 12/15/20 09:31 Dose: 125 mls/hr Documented by: SHARAD Sodium Chloride (Sodium Chloride 0.9% 10 Ml Syringe) 10 ml FLUSH ASDIRECTED PRN PRN Reason: Keep Vein Open Last Admin: 12/15/20 09:31 Dose: 10 ml Documented by: SHARAD Labs: Laboratory Tests 12/15/20 Range/Units 09:30 WBC 18.57 H (3.98-10.04) K/mm3 RBC 3.72 L (3.98-5.22) M/mm3 Hgb 11.5 (11.2-15.7) gm/dl Hct 34.7 (34.1-44.9) % MCV 93.3 (79.4-94.8) fl MCH 30.9 (25.6-32.2) pg MCHC 33.1 (32.2-35.5) g/dl RDW Std Deviation 45.6 (36.4-46.3) fL Plt Count 167 L (182-369) K/mm3 MPV 9.6 (9.4-12.3) fl Neut % (Auto) 64.0 (34.0-71.1) % Lymph % (Auto) 32.6 (19.3-51.7) % [place] % (Auto) 2.7 L (4.7-12.5) % Eos % (Auto) 0.3 L (0.7-5.8) Baso % (Auto) 0.1 (0.1-1.2) % Neut # (Auto) 11.89 H (1.56-6.13) K/mm3 Lymph # (Auto) 6.05 H (1.18-3.74) K/mm3 [place] # (Auto) 0.50 H (0.24-0.36) K/mm3 Eos # (Auto) 0.05 (0.04-0.36) K/mm3 Baso # (Auto) 0.02 (0.01-0.08) K/mm3 Meds: Medications Generic Name Dose Route Start Last Admin Trade Name Freq PRN Reason Stop Dose Admin Sodium Chloride 1,000 mls @ 125 mls/hr 12/15/20 09:30 12/15/20 09:31 Normal Saline IV 125 mls/hr ASDIRECTED YRIS Administration Sodium Chloride 10 ml 12/15/20 09:18 12/15/20 09:31 Sodium Chloride 0.9% 10 Ml Syringe FLUSH 10 ml ASDIRECTED PRN Administration Keep Vein Open - Re-Assessments/Exams Free Text/Narrative Re-Assessment/Exam: 12/15/20 09:40 I ordered an IV NS at 125ml/hr and labs. I called PT and they can get her in at 10:45. I will keep her here and send her down in about an hour. 12/15/20 10:13 Her WBC has gone up to 18.57 from 10 yesterday. I feel this is a stress response. She does not have a fever and no source of infection anywhere. I will send her down to PT. Departure - Departure Time of Disposition: 10:30 Disposition: Home, Self-Care 01 Condition: Good Clinical Impression: Vertigo - Discharge Information *PRESCRIPTION DRUG MONITORING PROGRAM REVIEWED*: Not Applicable *COPY OF PRESCRIPTION DRUG MONITORING REPORT IN PATIENT SARABJIT: Not Applicable Referrals: Chet Simpson MD [Primary Care Provider] - 1 Week Forms: ED Department Discharge Additional Instructions: We will take you down to physical therapy. Go by thee plan of care. You could use the antivert every 6 hours as needed for dizziness. Follow up with Dr Simpson within a week. Please return if you are worse. Sepsis Event Note (ED) - Evaluation Sepsis Screening Result: No Definite Risk - Focused Exam Vital Signs: Vital Signs Temp Pulse Resp BP Pulse Ox 12/15/20 08:56 97.8 F 79 19 175/76 H 99 - My Orders Last 24 Hours: My Active Orders 12/15/20 09:18 Sodium Chloride 0.9% [Saline Flush] 10 ml FLUSH ASDIRECTED PRN Peripheral IV Insertion Adult [OM.PC] Stat 12/15/20 09:19 Peripheral IV Care [RC] . DIRECTED 12/15/20 09:30 CBC WITH AUTO DIFF [HEME] Stat COMPREHENSIVE METABOLIC PN,CMP [CHEM] Stat MAGNESIUM [CHEM] Stat Sodium Chloride 0.9% [Normal Saline] 1,000 ml IV ASDIRECTED - Assessment/Plan Last 24 Hours: My Active Orders 12/15/20 09:18 Sodium Chloride 0.9% [Saline Flush] 10 ml FLUSH ASDIRECTED PRN Peripheral IV Insertion Adult [OM.PC] Stat 12/15/20 09:19 Peripheral IV Care [RC] . DIRECTED 12/15/20 09:30 CBC WITH AUTO DIFF [HEME] Stat COMPREHENSIVE METABOLIC PN,CMP [CHEM] Stat MAGNESIUM [CHEM] Stat Sodium Chloride 0.9% [Normal Saline] 1,000 ml IV ASDIRECTED
[2020-12-15 10:32] VITALS: BP 166/71; PULSE 64
== END 2020-12-15 10:30 | disposition home or self-care (01) ==
LOC: JD.ED 08:25
DX: R42 Dizziness and giddiness (principal); E78.00 Pure hypercholesterolemia, unspecified; I10 Essential (primary) hypertension; M19.90 Unspecified osteoarthritis, unspecified site; E03.9 Hypothyroidism, unspecified; Z79.82 Long term (current) use of aspirin; Z79.899 Other long term (current) drug therapy
CPT/HCPCS: 36415; 80053; 83735; 85025; 99284; J7030; 99283

== ENCOUNTER 2021-05-10 15:28 | Emergency (ER) | payer MEDICARE, OTHER ==
[2021-05-10 16:16] VITALS: BP 183/73; PULSE 72
[2021-05-10] MEDS ORDERED: Sodium Chloride 0.9% 10 ML Syringe FLUSH PRN (16:31)
[2021-05-10] MEDS ORDERED: Sodium Chloride 0.9% 1,000 ML IV ONE (16:31)
--- NOTE | 2021-05-10 16:32 | EDM.PDOC ---
ED HPI GENERAL MEDICAL PROBLEM - General Chief Complaint: Neurological Problem Stated Complaint: DIZZY Time Seen by Provider: 05/10/21 15:41 Source of Information: Reports: Patient History Limitations: Reports: No Limitations - History of Present Illness INITIAL COMMENTS - FREE TEXT/NARRATIVE: Presents with episodes of dizziness. Feels like she is spinning and has to hold on. She has had similar episodes before and went through some physical therapy treatments that seem to help initially last night when she laid down and laid on the right side she woke up this morning and had several episodes of this pains. One time she did have vomiting yesterday morning today it seems like it has been more persistent worse when she changes position better at rest. Not associated with any double vision or blurry vision no blackout spots no headaches no fevers chills or sweats no coughing or cold symptoms no chest pain shortness of breath or breathing problems no palpitations. No abdominal pain. No focal weakness noted. No coordination problems no speech problems. - Related Data Allergies Allergy/AdvReac Type Severity Reaction Status Date / Time No Known Allergies Allergy Verified 05/10/21 16:16 Home Meds: Home Meds Aspirin [Ecotrin] 81 mg PO BEDTIME 01/03/16 [History] Calcium Carbonate/Vitamin D3 [Calcium 1,000 + D3 Caplet] 1 each PO BID 01/03/16 [History] Cholecalciferol (Vitamin D3) [Vitamin D3] 2,000 unit PO DAILY 01/03/16 [History] Fish Oil/[place]-3 Fatty Acids [Fish Oil] 1 each PO DAILY 01/03/16 [History] Levothyroxine [Synthroid] 88 mcg PO ACBREAKFAST 01/03/16 [History] Multivitamin [Multivitamins] 1 each PO 1200 01/03/16 [History] Ubidecarenone [Coq-10] 100 mg PO DAILY 01/03/16 [History] atorvaSTATin [Lipitor] 20 mg PO BEDTIME 07/20/20 [History] Meclizine [Antivert] 12.5 mg PO BID #20 tab 12/14/20 [Rx] Betahistine HCl 8 mg PO Q8H 12/15/20 [History] Irbesartan/Hydrochlorothiazide [Irbesartan-Hctz 300-12.5 mg Tb] 1 each PO DAILY 12/15/20 [History] Meloxicam [Mobic] 15 mg PO DAILY PRN 12/15/20 [History] amLODIPine Besylate [Amlodipine Besylate] 10 mg PO DAILY 12/15/20 [History] Meclizine [Antivert] 25 mg PO Q6H PRN #20 tab 05/10/21 [Rx] Past Medical History Cardiovascular History: Reports: High Cholesterol, Hypertension Musculoskeletal History: Reports: Osteoarthritis Endocrine/Metabolic History: Reports: Hypothyroidism - Past Surgical History HEENT Surgical History: Reports: Cataract Surgery, Oral Surgery Musculoskeletal Surgical History: Reports: Hip Replacement Social & Family History - Living Situation & Occupation Living situation: Reports: , with Family (Son) Occupation: Retired ED ROS GENERAL - Review of Systems Review Of Systems: See Below Constitutional: Denies: Fever, Chills, Diaphoresis HEENT: Denies: Eye Discharge, Vision Change Respiratory: Denies: Shortness of Breath, Cough Cardiovascular: Reports: Lightheadedness. Denies: Chest Pain, Palpitations GI/Abdominal: Reports: Nausea, Vomiting. Denies: Abdominal Pain, Diarrhea : Denies: Dysuria, Hematuria Musculoskeletal: Denies: Neck Pain, Back Pain Skin: Denies: Pallor Neurological: Reports: Dizziness. Denies: Headache, Numbness, Pre-Existing Deficit, Syncope, Tingling, Trouble Speaking, Difficulty Walking, Weakness, Change in Speech Psychiatric: Reports: No Symptoms ED EXAM, NEURO - Physical Exam Exam: See Below Exam Limited By: No Limitations General Appearance: Alert, WD/WN, No Apparent Distress Eye Exam: Right Eye: Other (No gross visual field deficit no nystagmus [place]- [place] seem to be negative except he she does have symptoms when she lays down and sits up but the symptoms do resolve within a minute.), Bilateral Eye: EOMI, PERRL Ears: Normal TMs Throat/Mouth: Normal Inspection, Normal Oropharynx Head Exam: Atraumatic, Normocephalic Neck: Normal Inspection, Supple, Non-Tender Respiratory/Chest: No Respiratory Distress, Lungs Clear, Normal Breath Sounds Cardiovascular: Normal Peripheral Pulses, Regular Rate, Rhythm, No Edema GI/Abdominal: Normal Bowel Sounds, Soft, Non-Tender Neurological: Alert, Normal Mood/Affect, Normal Dorsiflexion, CN II-XII Intact, Normal Plantar Flexion, Normal Gait, Normal Reflexes, No Motor/Sensory Deficits, Oriented x 3 Extremities: Normal Inspection Psychiatric: Normal Affect Skin Exam: Warm, Dry #1 Interpretation EKG Date: 05/10/21 EKG Interpretation Comments: Reviewed the EKG from May 10, 2021 at 5:17 PM it shows sinus rhythm rate of 62 [place] 190 QRS is 153 QT corrected is 495 underlying left bundle branch block pattern otherwise no acute ischemic changes noted. Course - Vital Signs Text/Narrative:: Positional dizziness/no obvious nystagmus but sounds more dizzy like not syncopal or lightheaded. No focal neurologic deficits. Will screen of a noncontrast CT scan EKG rule acute coronary syndrome, electrolytes white count rule out infectious or metabolic etiology. Last Recorded V/S: Last Vital Signs Temp 97.9 F 05/10/21 16:12 Pulse 72 05/10/21 16:12 Resp 16 05/10/21 16:12 BP 183/73 H 05/10/21 16:12 Pulse Ox 100 05/10/21 16:12 Orthostatic Blood Pressure [ 192/86 Standing] Orthostatic Blood Pressure [ 187/83 Sitting] Orthostatic Blood Pressure [ 190/70 Supine] - Orders/Labs/Meds Orders: Active Orders 24 hr Category Date Time Status Cardiac Monitoring [RC] . DIRECTED Care 05/10/21 16:32 Active Orthostatic Vital Signs [RC] ASDIRECTED Care 05/10/21 16:32 Active Peripheral IV Care [RC] . DIRECTED Care 05/10/21 16:31 Active Sodium Chloride 0.9% [Saline Flush] Med 05/10/21 16:31 Active 10 ml FLUSH ASDIRECTED PRN Peripheral IV Insertion Adult [OM.PC] Stat Oth 05/10/21 16:31 Ordered EKG 12 Lead [EK] Stat Ther 05/10/21 16:31 Ordered Medication Orders Sodium Chloride (Sodium Chloride 0.9% 10 Ml Syringe) 10 ml FLUSH ASDIRECTED PRN PRN Reason: Keep Vein Open Last Admin: 05/10/21 17:14 Dose: 10 ml Documented by: TORO Labs: Laboratory Tests 05/10/21 05/10/21 Range/Units 16:50 16:50 WBC 7.92 (3.98-10.04) K/mm3 RBC 3.65 L (3.98-5.22) M/mm3 Hgb 11.2 (11.2-15.7) gm/dl Hct 33.7 L (34.1-44.9) % MCV 92.3 (79.4-94.8) fl MCH 30.7 (25.6-32.2) pg MCHC 33.2 (32.2-35.5) g/dl RDW Std Deviation 44.4 (36.4-46.3) fL Plt Count 159 L (182-369) K/mm3 MPV 9.5 (9.4-12.3) fl Neut % (Auto) 54.6 (34.0-71.1) % Lymph % (Auto) 39.0 (19.3-51.7) % [place] % (Auto) 4.4 L (4.7-12.5) % Eos % (Auto) 1.6 (0.7-5.8) Baso % (Auto) 0.3 (0.1-1.2) % Neut # (Auto) 4.32 (1.56-6.13) K/mm3 Lymph # (Auto) 3.09 (1.18-3.74) K/mm3 [place] # (Auto) 0.35 (0.24-0.36) K/mm3 Eos # (Auto) 0.13 (0.04-0.36) K/mm3 Baso # (Auto) 0.02 (0.01-0.08) K/mm3 Sodium 136 (136-145) mEq/L Potassium 3.2 L (3.5-5.1) mEq/L Chloride 100 (98-107) mEq/L Carbon Dioxide 29 (21-32) mEq/L Anion Gap 10.2 (5-15) BUN 18 (7-18) mg/dL Creatinine 0.8 (0.55-1.02) mg/dL Est Cr Clr Drug Dosing TNP Estimated GFR (MDRD) > 60 (>60) mL/min BUN/Creatinine Ratio 22.5 H (14-18) Glucose 106 H (70-99) mg/dL Calcium 9.2 (8.5-10.1) mg/dL Total Bilirubin 0.4 (0.2-1.0) mg/dL AST 26 (15-37) U/L ALT 19 (14-59) U/L Alkaline Phosphatase 76 (46-116) U/L Troponin I < 0.017 (0.00-0.056) ng/mL C-Reactive Protein <0.2 (<1.0) mg/dL Total Protein 6.0 L (6.4-8.2) g/dl Albumin 2.9 L (3.4-5.0) g/dl Globulin 3.1 gm/dL Albumin/Globulin Ratio 0.9 L (1-2) Meds: Medications Generic Name Dose Route Start Last Admin Trade Name Freq PRN Reason Stop Dose Admin Sodium Chloride 10 ml 05/10/21 16:31 05/10/21 17:14 Sodium Chloride 0.9% 10 Ml Syringe FLUSH 10 ml ASDIRECTED PRN Administration Keep Vein Open Discontinued Medications Generic Name Dose Route Start Last Admin Trade Name Freq PRN Reason Stop Dose Admin Sodium Chloride 1,000 mls @ 999 mls/hr 05/10/21 16:31 05/10/21 16:55 Normal Saline IV 05/10/21 17:31 999 mls/hr ONETIME ONE Administration Meclizine HCl 25 mg 05/10/21 18:09 05/10/21 18:32 Meclizine 12.5 Mg Tab PO 05/10/21 18:10 25 mg ONETIME ONE Administration - Radiology Interpretation Free Text/Narrative:: CT scan shows slight sinus findings stable from previous scan, senescent change noted nothing acute seen on noncontrasted head CT - Re-Assessments/Exams Free Text/Narrative Re-Assessment/Exam: 05/10/21 17:26 Blood cell count 7900 hemoglobin 11.2 hematocrit 33.7 platelet count 159,000 05/10/21 17:41 Sodium 136 potassium 3.2 chloride 100 CO2 is 29 BUN is 18 creatinine 0.9 creatinine clearance is greater than 60 glucose is 106 LFTs are normal troponin negative CRP is negative 05/10/21 18:15 And is fine has just sitting in bed, no focal neurologic deficits CT scan is negative, vital signs have been stable. Given IV fluids. We will give her antivert 25 mg every 6 hours. Plan discharge home will recommend neurology consult. Free Text/Narrative Re-Assessment/Exam: 05/10/21 19:20 Patient doing better. She had antevert, is able to ambulate with some assistance although she does use a walker. No spinning. Recommend that she follow-up with her primary care and consider neurology evaluation, Ativan prescribed, return precautions given Departure - Departure Time of Disposition: 19:25 Disposition: Home, Self-Care 01 Condition: Good Clinical Impression: Vertigo - Discharge Information Prescriptions: Meclizine [Antivert] 25 mg PO Q6H PRN #20 tab PRN Reason: Dizziness Instructions: Benign Positional Vertigo, Dizziness, [id number] Referrals: Chet Mcwilliams MD [Primary Care Provider] - Forms: ED Department Discharge Additional Instructions: Recommend follow-up with your primary Care provider and get referred to neurology clinic. Antivert is 25 mg every 6 hours as needed for dizziness. Sure you always drink plenty of water and fluids on a daily basis. Call 911 or return if any increasing dizziness especially associated with any vision loss or vision changes, slurred speech, weakness, headaches or fainting spell. Sepsis Event Note (ED) - Evaluation Sepsis Screening Result: No Definite Risk - Focused Exam Vital Signs: Vital Signs Temp Pulse Resp BP Pulse Ox 05/10/21 16:12 97.9 F 72 16 183/73 H 100 - My Orders Last 24 Hours: My Active Orders 05/10/21 16:31 Peripheral IV Care [RC] . DIRECTED Sodium Chloride 0.9% [Saline Flush] 10 ml FLUSH ASDIRECTED PRN Peripheral IV Insertion Adult [OM.PC] Stat EKG 12 Lead [EK] Stat 05/10/21 16:32 Cardiac Monitoring [RC] . DIRECTED Orthostatic Vital Signs [RC] ASDIRECTED - Assessment/Plan Last 24 Hours: My Active Orders 05/10/21 16:31 Peripheral IV Care [RC] . DIRECTED Sodium Chloride 0.9% [Saline Flush] 10 ml FLUSH ASDIRECTED PRN Peripheral IV Insertion Adult [OM.PC] Stat EKG 12 Lead [EK] Stat 05/10/21 16:32 Cardiac Monitoring [RC] . DIRECTED Orthostatic Vital Signs [RC] ASDIRECTED
--- NOTE | 2021-05-10 17:30 | CT ---
Head CT Technique: Multiple axial sections through the brain were obtained. Intravenous contrast was not utilized. Reconstructed coronal and sagittal images were obtained. Comparison: Prior head CT study 12/14/20. Findings: Ventricles along with basal cisterns and sulci over the convexities are mildly prominent. Mild diminished density is noted within the periventricular white matter most likely representing small vessel ischemic demyelination change. 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 No other abnormal parenchymal densities are seen. No evidence of intracranial hemorrhage is seen. No midline shift or mass-effect is seen. Bone window settings were reviewed which show mucosal thickening within both maxillary sinuses and minimal thickening within the ethmoid sinuses. Mastoid sinuses are clear. No acute calvarial abnormality is appreciated. There is minimal atherosclerotic calcification seen within the carotid siphon. Impression: 1. Slight sinus findings which are fairly stable from prior CT exam. 2. Senescent change as described above. 3. Nothing acute is seen on noncontrast head CT exam. Diagnostic code #2
[2021-05-10] MEDS ORDERED: Meclizine 12.5 MG Tab PO ONE (18:09)
== END 2021-05-10 19:35 | disposition home or self-care (01) ==
LOC: JD.ED 15:28
DX: R42 Dizziness and giddiness (principal); E78.00 Pure hypercholesterolemia, unspecified; I10 Essential (primary) hypertension; Z79.82 Long term (current) use of aspirin; Z79.899 Other long term (current) drug therapy
CPT/HCPCS: 36415; 70450; 80053; 84484; 85025; 86140; 93005; 99284; A9270; J7030

== ENCOUNTER 2021-07-17 11:52 | Emergency (ER) | payer MEDICARE, OTHER ==
[2021-07-17] MEDS ORDERED: Metoclopramide 10 MG/2 ML SDV IVPUSH ONE (12:39)
--- NOTE | 2021-07-17 12:43 | EDM.PDOC ---
ED HPI GENERAL MEDICAL PROBLEM - General Chief Complaint: ENT Problem Stated Complaint: VERTIGO Time Seen by Provider: 07/17/21 12:28 Source of Information: Reports: Patient, Family (son) History Limitations: Reports: No Limitations - History of Present Illness INITIAL COMMENTS - FREE TEXT/NARRATIVE: 85-year-old female presents to the ED after experiencing a severe vertigo attack while at the [employer] [facility] this morning. She states when they tilted her head back in full extension to shampoo and wash her hair she developed severe vertigo symptoms with the room spinning and associated nausea but no vomiting. This resolved when she was able to get back to the upright position. 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 Her symptoms are worse when she is lying and when she goes to sit up. She has fallen down in the past due to vertigo symptoms and does use a walker around home. When she is holding herself perfectly still she has no symptoms. Blood pressure today is 168/85. No recent changes to any other other medications. She is just getting over COVID-19 illness diagnosed she believes 04 July and she was told by [facility] she could get out of the house by July 11. She just got out of the house for the first time yesterday July 16. She states after monoclonal antibody therapy she felt markedly improved and cough resolved over the next 3 days. Appetite never did wane too badly. Onset: Today, Sudden Onset Date: 07/17/21 Onset Time: 11:30 Duration: Minutes: Location: Reports: Other (Cute bout of severe vertigo with her head in full extension at the [employer]) Quality: Reports: Other Severity: Severe (Of your vertigo resolved when she is sitting upright.) Improves with: Reports: Other (Thing still and sitting upright. It is worsened by lying down in bed or while getting up from bed.) Worsens with: Reports: Movement (Only in the supine to sitting position) Context: Denies: Activity, Exercise, Lifting, Sick Contact, Trauma, Other Associated Symptoms: Reports: Other. Denies: Confusion, Chest Pain, Cough, cough w sputum, Diaphoresis, Fever/Chills, Headaches, Loss of Appetite, Malaise, Nausea/Vomiting, Rash, Seizure, Shortness of Breath, Syncope, Weakness Treatments [employer]: Reports: Other (see below) (None.) - Related Data Allergies Allergy/AdvReac Type Severity Reaction Status Date / Time No Known Allergies Allergy Verified 07/17/21 12:19 Home Meds: Home Meds Aspirin [Ecotrin] 81 mg PO BEDTIME 01/03/16 [History] Calcium Carbonate/Vitamin D3 [Calcium 1,000 + D3 Caplet] 1 each PO BID 01/03/16 [History] Cholecalciferol (Vitamin D3) [Vitamin D3] 2,000 unit PO DAILY 01/03/16 [History] Fish Oil/Shaw-3 Fatty Acids [Fish Oil] 1 each PO DAILY 01/03/16 [History] Levothyroxine [Synthroid] 88 mcg PO ACBREAKFAST 01/03/16 [History] Multivitamin [Multivitamins] 1 each PO 1200 01/03/16 [History] Ubidecarenone [Coq-10] 100 mg PO DAILY 01/03/16 [History] atorvaSTATin [Lipitor] 20 mg PO BEDTIME 07/20/20 [History] Meclizine [Antivert] 12.5 mg PO BID #20 tab 12/14/20 [Rx] Betahistine HCl 8 mg PO Q8H 12/15/20 [History] Irbesartan/Hydrochlorothiazide [Irbesartan-Hctz 300-12.5 mg Tb] 1 each PO DAILY 12/15/20 [History] Meloxicam [Mobic] 15 mg PO DAILY PRN 12/15/20 [History] amLODIPine Besylate [Amlodipine Besylate] 10 mg PO DAILY 12/15/20 [History] Meclizine [Antivert] 25 mg PO Q6H PRN #20 tab 05/10/21 [Rx] Past Medical History Cardiovascular History: Reports: High Cholesterol, Hypertension Musculoskeletal History: Reports: Osteoarthritis Neurological History: Reports: Vertigo (Paroxysmal benign positional vertigo. 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 Denies: Fever, Chills, Night Sweats, Decreased Appetite, Weight Loss, Weight Gain, Other HEENT: Reports: Glasses, Vertigo (Vertigo on a daily basis particularly getting in and out of bed.) Respiratory: Reports: Shortness of Breath, Cough (Known COPD.). Denies: Wheezing, Pleuritic Chest Pain, Sputum (Cough markedly improved after COVID-19 illness.), Hemoptysis Cardiovascular: Denies: Chest Pain, Edema Endocrine: Reports: Fatigue GI/Abdominal: Reports: Other (Rare GERD.). Denies: Abdominal Pain, Anorexia, Black Stool, Diarrhea, Decreased Appetite, Difficulty Swallowing, Distension, Flatus : Reports: Frequency, Incontinence (Usually up at night 3 times to void. Rare urgency incontinence), Other Musculoskeletal: Reports: Neck Pain, Shoulder Pain, Back Pain Skin: Reports: Other (Bruises easily) Neurological: Reports: No Symptoms, Confusion, Dizziness. Denies: Headache, Numbness, Paresthesia Psychiatric: Reports: Anxiety Hematologic/Lymphatic: Reports: No Symptoms Immunologic: Reports: No Symptoms ED EXAM, NEURO - Physical Exam Exam: See Below Exam Limited By: No Limitations General Appearance: Alert, WD/WN, No Apparent Distress, Other (Patient feels no vertigo at this time. Temperature is 36.2 with a heart rate of 73 and respiratory of 18 with O2 sats 100% room air. BP is 168/85) Eye Exam: Bilateral Eye: Normal Inspection, Nystagmus (On left lateral gaze mild.), PERRL Ears: Hearing Loss ( Patient does have a flake of wax across the right ear canal possibly occluding the ear canal. Mild bilaterally left TM is normal), Other (Uvula is in the midline.) Throat/Mouth: Normal Inspection, Normal Lips, Normal Teeth, Normal Voice, Other Head Exam: Atraumatic, Normocephalic Neck: No: Supple, Carotid Bruit, Lymphadenopathy (L), Lymphadenopathy (R) Respiratory/Chest: No Respiratory Distress, Lungs Clear, Decreased Breath Sounds (Decreased the lower 20% lung zhou bilaterally). No: No Accessory Muscle Use Cardiovascular: Normal Peripheral Pulses, Regular Rate, Rhythm, No Edema, No Gallop, No JVD, No Murmur GI/Abdominal: Normal Bowel Sounds, Soft, Non-Tender, No Organomegaly, No Distention (Female) Exam: Normal External Exam Rectal (Female) Exam: Normal Exam Neurological: Alert, Normal Mood/Affect, Normal Dorsiflexion, CN II-XII Intact, Normal Reflexes, No Motor/Sensory Deficits, Oriented x 3, Other (Vertigo is recurrent when she is in full extension) DTR: 2+: Bicep (R), Bicep (L) Back Exam: Normal Inspection, Full Range of Motion. No: CVA Tenderness (L), CVA Tenderness (R) Extremities: Normal Inspection, Normal Range of Motion, Non-Tender, No Pedal Edema, Other (Evidence of arthritic changes both knees both hips) Psychiatric: Normal Affect, Normal Mood Skin Exam: Warm, Dry, Intact, Normal Color, No Rash Course - Vital Signs Last Recorded V/S: Last Vital Signs Temp 36.4 C 07/17/21 13:22 Pulse 72 07/17/21 13:22 Resp 16 07/17/21 13:22 BP 168/78 H 07/17/21 13:22 Pulse Ox 100 07/17/21 13:22 - Orders/Labs/Meds Orders: Active Orders 24 hr Category Date Time Status Ear Irrigation [RC] ASDIRECTED Care 07/17/21 12:40 Active Meds: Medications Discontinued Medications Generic Name Dose Route Start Last Admin Trade Name Randee PRN Reason Stop Dose Admin Metoclopramide HCl 5 mg 07/17/21 12:39 Metoclopramide 10 Mg/2 Ml Sdv IVPUSH 07/17/21 12:40 ONETIME ONE Metoclopramide HCl 5 mg 07/17/21 12:54 07/17/21 13:05 Metoclopramide 5 Mg Tab PO 07/17/21 12:55 5 mg ONETIME ONE Administration Metoclopramide HCl 5 mg 07/17/21 12:58 Metoclopramide 5 Mg Tab PO 07/17/21 12:59 ONETIME ONE - Radiology Interpretation Free Text/Narrative:: 85-year-old female presents to the ED after developing a severe bout of vertigo when she was at the [facility] this morning. She states when she was tilted backwards with her neck in full extension to shampoo her hair she developed severe vertigo symptoms. History suggest she has chronic vertigo made worse by getting in and out of bed i.e. assuming the supine position from seated position and similarly when getting back up from supine to the seated position she experiences vertigo. Exam today reveals mild nystagmus on left lateral gaze. She has no nausea or vomiting. She takes meclizine 12.5 mg every night at bedtime because of the vertigo symptoms. Neuro exam is otherwise normal at this time. Plan she will be given Reglan 5 mg p.o. for relief of vertigo symptoms. I will have the nurses irrigate her right ear as well. Departure - Departure Time of Disposition: 13:20 Disposition: Home, Self-Care 01 Condition: Fair Clinical Impression: Benign paroxysmal positional vertigo of right ear, Vertebral basilar insufficiency, Vertigo - Discharge Information *PRESCRIPTION DRUG MONITORING PROGRAM REVIEWED*: Not Applicable *COPY OF PRESCRIPTION DRUG MONITORING REPORT IN PATIENT SARABJIT: Not Applicable Instructions: Vertigo, [id number] Referrals: Chet Mcwilliams MD [Primary Care Provider] - Forms: ED Department Discharge Additional Instructions: Evaluation in the emergency room this morning in regards to development of his severe attack of vertigo at the [facility] this morning. As you indicated when your head was tilted backwards in full extension to have your hair washed or rinsed out you developed an acute bout of vertigo which would not be unexpected with your history. The arteries that supply the back part of the brain called the vertebral arteries travel up the bones in your neck. These vessels are often occluded nearly completely with atherosclerosis as we age. Therefore with the neck in full extension or sometimes even in full flexion like looking down at the floor you might experience recurrent bouts of vertigo. Her symptoms had resolved as long as you do not move and sit upright in the emergency room. You are given a medicine called Reglan 5 mg which will stabilize the balance mechanism over the next hour and a half. You may continue to use your Antivert or meclizine at bedtime as needed. No other changes to medications required at this time. Right ear was irrigated to remove earwax that was occluding the ear canal and possibly touching the eardrum on the right side which can cause vertigo symptoms. Sepsis Event Note (ED) - Evaluation Sepsis Screening Result: No Definite Risk - Focused Exam Vital Signs: Vital Signs Temp Pulse Resp BP Pulse Ox 07/17/21 13:22 36.4 C 72 16 168/78 H 100 07/17/21 12:17 36.2 C 73 18 168/85 H 100 - My Orders Last 24 Hours: My Active Orders 07/17/21 12:40 Ear Irrigation [RC] ASDIRECTED - Assessment/Plan Last 24 Hours: My Active Orders 07/17/21 12:40 Ear Irrigation [RC] ASDIRECTED
[2021-07-17] MEDS ORDERED: Metoclopramide 5 MG Tab PO ONE ×2 (12:54→12:58)
[2021-07-17 13:31] VITALS: BP 168/78; PULSE 72
== END 2021-07-17 13:25 | disposition home or self-care (01) ==
LOC: JD.ED 11:52
DX: H81.11 Benign paroxysmal vertigo, right ear (principal); H61.21 Impacted cerumen, right ear; G45.0 Vertebro-basilar artery syndrome; E78.00 Pure hypercholesterolemia, unspecified; I10 Essential (primary) hypertension; E03.9 Hypothyroidism, unspecified; Z79.82 Long term (current) use of aspirin; Z79.899 Other long term (current) drug therapy
CPT/HCPCS: 69209; 99283; A9270; 99284